=== PATIENT | female | born 1955 | race Caucasian/White ===

== ENCOUNTER 2017-05-29 09:26 | Emergency (ER) | payer SELFPAY ==
[~2017-05-29] VITALS: Ht 165.1 cm; Wt 59.0 kg
[2017-05-29 09:27] VITALS: BP 166/91; PULSE 89; RESP 18; TEMP 99.2; O2SAT 96
--- NOTE | 2017-05-29 09:45 | PD ---
HPI Chief Complaint: Cold / Flu Symptoms Time Seen by Provider: 09:42 Travel History International Travel<30 days: No Contact w/Intl Traveler<30days: No Traveled to known affect area: No History of Present Illness HPI 61-year-old female patient presents to the ER today because she has had several days' history of cough, cold symptoms, nasal congestion, sinus congestion. She denies any significant fevers, nausea, vomiting or abdominal pains, or other symptoms. She states that her has had similar symptoms last week and had been put on azithromycin. Modifying Factors: None Associated Signs & Symptoms: Cough, cold symptoms, nasal congestion and sinus congestion Risk Factors: Sick contact PFSH Past Medical History ?: Not Social History Tobacco Use: No Allergies-Medications (Allergen,Severity, Reaction): Coded Allergies: No Known Allergies (Unverified , 05/29/17) Review of Systems Except as stated in HPI: all other systems reviewed are Neg Physical Exam Narrative GENERAL: Well-developed middle age white female patient currently none acute distress at awake and oriented 3. SKIN: Focused skin assessment warm/dry. HEAD: Atraumatic. Normocephalic. EYES: Pupils equal and round. No scleral icterus. No injection or drainage. ENT: Mucosa pink and moist. No erythema or exudates. No uvular edema. No uvular , palatal, or tonsillar deviation. Airway patent. NECK: Trachea midline. No JVD. CARDIOVASCULAR: Regular rate and rhythm. No murmur appreciated. RESPIRATORY: No accessory muscle use. Clear to auscultation. Breath sounds equal bilaterally. GASTROINTESTINAL: Abdomen soft, non-tender, nondistended. Hepatic and splenic margins not palpable. MUSCULOSKELETAL: No obvious deformities. No clubbing. No cyanosis. No edema. NEUROLOGICAL: Awake and alert. No obvious cranial nerve deficits. Motor grossly within normal limits. Normal speech. PSYCHIATRIC: Appropriate mood and affect; insight and judgment normal. Data Data Last Documented VS Vital Signs Date Time Temp Pulse Resp B/P (MAP) Pulse Ox O2 Delivery O2 Flow Rate FiO2 05/29/17 09:27 99.2 89 18 166/91 (116) 96 Room Air Orders Orders Influenzae A/B Antigen (05/29/17 09:42) MDM Medical Decision Making Medical Screen Exam Complete: Yes Emergency Medical Condition: Yes Medical Record Reviewed: Yes Differential Diagnosis URI versus influenza versus bronchitis Narrative Course Influenza test is negative. Exam is fairly unremarkable, pulmonary exam is unremarkable, no wheezing or crackles. At this point, I suspect that she has underlying URI. My plan would be to release her with symptomatic relief for nasal congestion and coughing. Return for any worsening in symptoms as needed. The plan has been discussed with her and she states understanding. Diagnosis Primary Impression: Viral URI Med/Other Pt SpecificInfo: Prescription(s) given Scripts Dextromethorphan-Guaifenesin (Robitussin Peak Cold Dm 100-10 mg/5Ml) 100 Mg-10 Mg/5 Ml Syp 10 ML PO QID Y for COUGH, #200 Prov: Kaylynn Roman MD 05/29/17 Disposition: DISCHARGE HOME Condition: Stable Kaylynn Roman MD May 29, 2017 09:45
[2017-05-29] MEDS ORDERED: ROBISYP8 PO (10:41)
[2017-05-29 11:02] VITALS: BP 147/86; PULSE 74; RESP 17; O2SAT 100
== END 2017-05-29 11:10 | disposition home or self-care (01) ==
LOC: NEPD 09:26
DX: J06.9 Acute upper respiratory infection, unspecified (principal)
CPT/HCPCS: 87804; 99283